=== PATIENT | male | born 1980 | race Two or more races ===

== ENCOUNTER 2024-09-08 14:00 | Emergency (ER) | payer MEDICAID, SELFPAY ==
[2024-09-08 14:01] VITALS: BMI 34.4
[2024-09-08 14:27] VITALS: BP 170/92; PULSE 91; RESP 18; TEMP 36.8; O2SAT 95
--- NOTE | 2024-09-08 14:39 | PC.NURSE ---
Call pt from lobby and outside no answer @[phone]
--- NOTE | 2024-09-08 15:28 | PD.EDSKIN ---
ED Skin Abcess FB-RME/HPI General Chief complaint: Skin/Abscess/Foreign Body Stated complaint: SHINGLES TODAY Time Seen by Provider: 09/08/24 14:36 Source: patient Arrival date/time: 09/08/24 14:00 44-year-old male presents to the emergency department with a rash to his left forearm. Patient reports history of shingle rash in the past reports symptoms today are similar to those vesicular lesions. Here requesting for treatment. Mode of arrival: ambulatory Related Data Previous Rx's ?Medication ?Instructions ?Recorded benzonatate 100 mg capsule 100 mg PO TID #14 caps 09/20/23 ibuprofen 800 mg tablet 800 mg PO TID PRN pain #30 tabs 09/20/23 acyclovir 800 mg tablet 800 mg PO QID 7 days #28 tabs 09/08/24 Allergies Allergy/AdvReac Type Severity Reaction Status Date / Time No Known Allergies Allergy Verified 09/08/24 14:02 Review of Systems Review of Systems Systems Reviewed: All systems reviewed, normal except as documented Narrative Review of Systems: Gen: No fever, no chills, no weight loss EYES: No discharge, no visual changes, no pain HEENT: No ear pain, no congestion, no sore throat PULM: No shortness of breath, no cough, no congestion CV: No chest pain, no dyspnea on exertion, no palpitations GI: No nausea, no vomiting, no diarrhea, no pain, no constipation : No frequency, no urgency,? no dysuria Musc/skel: No joint pain, no back pain Skin: +rash to forearm ED Exam Narrative Physical exam: General: Sittiing in Exam table in no acute distress, answering questions appropriately HENT: normocephalic, atraumatic, EOMI, PERRLA, moist mucous membranes Chest: chest wall is nontender Cardiac: regular rate and rhythm, normal S1 and S2, no murmurs, rubs, or gallops, capillary refill ?2 seconds Pulmonary: clear to auscultation bilaterally, no wheezing, crackles, or rhonchi Abdominal: active bowel sounds, soft, nontender, nondistended Neuro: A&OX3, CN II-XII intact, sensation grossly intact bilaterally in UE and LE. Skin: + vesicular rash noted to his left forearm. Ext: no lower extremity edema Course Quality Measures none Vital Signs Vital signs: Vital Signs Temperature 98.2 F 09/08/24 14:27 Pulse Rate 91 09/08/24 14:27 Respiratory Rate 18 09/08/24 14:27 Blood Pressure 170/92 H 09/08/24 14:27 Pulse Oximetry (%) 95 09/08/24 14:27 Oxygen Delivery Method Room Air 09/08/24 14:27 Skin / Abscess / Foreign Body Patient data External records reviewed:: [facility] previous records Clinical information provided by:: patient Social determinants that could affect healthcare access:: none Patient has the following chronic illnesses:: None How is presenting disease/condition affected by chronic disease/condition?: no chronic disease Evaluation data The following diagnostics were reviewed and interpreted by me:: other (specify) Lab and/or radiology exams considered but not ordered:: Yes it was considered Interpretation Summary: None Medications / Prescriptions Medications or Prescriptions considered but not ordered:: None Medication administrations:: None Consultations Consultation(s) initiated? (list below): No Diagnosis Skin/Abscess Differential Diagnosis: viral exanthem, urticaria, allergic reaction to drug, cellulitis, contact dermatitis and other Most likely diagnosis given after review of the tests above:: Shingles Rash Admission Indicated Admission indicated?: not indicated Explain why admission is indicated or not indicated:: None Admission Request Was there a request for admission?: No Disposition Plan Disposition Plan: Discharge Discharge Attestation Discharge Attestation: The patient and all family members were given an opportunity to ask questions and understood the discharge instructions. Discharge instructions specifically effects, indications for sooner follow up or return to the emergency department, and the expected course of current diagnosis. Patient condition: Stable Discharge Plan Plan Patient Disposition: HOME (Self Care) Patient condition on transfer: Stable Prescriptions/Referrals Prescriptions/Med Rec: New acyclovir 800 mg tablet 800 mg PO QID 7 Days Qty: 28 0RF No Action ibuprofen 800 mg tablet 800 mg PO TID PRN (Reason: pain) Qty: 30 0RF benzonatate 100 mg capsule 100 mg PO TID Qty: 14 0RF Problem List Clinical Impression: Shingles rash Patient/Caregiver Discharge Instructions Discharge Activity: activity as tolerated Education Materials: ED Shingles (Herpes Zoster) Additional Instructions: Take medication as directed. Return to the emergency department with any worsening symptoms and condition. Print Language: Vietnamese Stand Alone Forms: Jill Award Info., Patient Portal Info Letter PA/RECREATION INSTRUCTOR Supervising Physician PA/RECREATION INSTRUCTOR Supervising Physician: Dr Avina
== END 2024-09-08 15:30 | disposition home or self-care (01) ==
PROVIDERS: Emergency Provider Emergency Medicine; PCP Family Medicine
DX: B02.9 Zoster without complications (principal)
CPT/HCPCS: 99281

== ENCOUNTER 2024-09-12 17:09 | Emergency (ER) | payer MEDICAID, SELFPAY ==
[2024-09-12] VITALS (7 sets, daily range): BP systolic 155–179; BP diastolic 95–109; PULSE 95–110; RESP 16–20; TEMP 36.4–36.7; O2SAT 95–100; BMI 31.9
--- NOTE | 2024-09-12 20:19 | PD.EDANX ---
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 Patient has been complaining of panic attack, has been ongoing on and off for the last 1 week. Denies any homicidal or suicidal ideation. Severity of symptoms moderate. Denies any chest pain headache or other complaints. Patient is ambulatory. Patient not taking anything for anxiety. Related Data Previous Rx's ?Medication ?Instructions ?Recorded benzonatate 100 mg capsule 100 mg PO TID #14 caps 09/20/23 ibuprofen 800 mg tablet 800 mg PO TID PRN pain #30 tabs 09/20/23 acyclovir 800 mg tablet 800 mg PO QID 7 days #28 tabs 09/08/24 hydroxyzine pamoate 50 mg capsule 50 mg PO BID PRN anxiety #30 caps 09/12/24 Allergies Allergy/AdvReac Type Severity Reaction Status Date / Time No Known Allergies Allergy Verified 09/08/24 14:02 Review of Systems Review of Systems Narrative Review of Systems: Review of system reviewed and within normal limits except mentioned in HPI ED Exam Narrative Physical exam: VITAL SIGNS: Reviewed. GENERAL APPEARANCE: Alert and interactive, follows commands, no acute distress, anxious HEAD AND FACE: Non-traumatic. ENT: PERRL, pink conjunctivitis, eyelid no trauma, Mucous membrane moist. NECK: Supple, nontender, no nuchal rigidity. CHEST: No tenderness, no crepitus, no paradoxical movement, no retractions. LUNGS: Clear, well ventilated, symmetric, no rales, no wheezing, no ronchi, no stridor, good breath sounds bilaterally. HEART: Regular rate, regular rhythm, no murmur, no gallops. ABDOMEN: Soft, positive bowel sounds, nondistended, no guarding, nontender, no rebound, no masses, RECTAL: Deferred. GENITAL: Deferred. NEUROLOGICAL: Gross motor function intact sensory function intact, Appropriate for age. MUSCULOSKELETAL: low back nontender, full range of motion. EXTREMITIES: Nontender, full range of motion. SKIN: Color pink, dry, no rash, no lacerations, no abrasions, no contusions. LYMPHATICS: Deferred. Course Quality Measures none Orders Category Date Time Status LORazepam [Ativan] Med 09/12/24 20:15 Discontinued 1 mg PO X1 ONE Vital Signs Vital signs: Vital Signs Temperature 97.7 F 09/12/24 17:21 Pulse Rate 95 09/12/24 17:21 Respiratory Rate 16 09/12/24 17:21 Blood Pressure 155/95 H 09/12/24 17:21 Pulse Oximetry (%) 95 09/12/24 17:21 Oxygen Delivery Method Room Air 09/12/24 17:21 Anxiety MDM Narrative MDM Narrative: Patient is medically cleared for incarceration. Patient was given Ativan with significant improvement of symptoms. Workup is not needed at this time. Patient data External records reviewed:: None Clinical information provided by:: none Social determinants that could affect healthcare access:: none Patient has the following chronic illnesses:: None How is presenting disease/condition affected by chronic disease/condition?: no chronic disease Evaluation data The following diagnostics were reviewed and interpreted by me:: other (specify) (None) Lab and/or radiology exams considered but not ordered:: None Interpretation Summary: None Medications / Prescriptions Medications or Prescriptions considered but not ordered:: None Medication administrations:: Medication Administration History Discontinued Medications Lorazepam (Lorazepam 0.5 Mg Tablet) 1 mg PO X1 ONE Stop: 09/12/24 20:16 Consultations Consultation(s) initiated? (list below): No Diagnosis Differential diagnosis anxiety: hyperventilation, panic disorder and acute anxiety Most likely diagnosis given after review of the tests above:: Panic attack, medical clearance for incarceration Admission Indicated Admission indicated?: not indicated Explain why admission is indicated or not indicated:: Patient is medically cleared for incarceration Admission Request Was there a request for admission?: No Disposition Plan Disposition Plan: Discharge Discharge Attestation Discharge Attestation: Patient condition: Stable Discharge Plan Plan Patient Disposition: HOME (Self Care) Disposition Comment: stable Prescriptions/Referrals Prescriptions/Med Rec: New hydroxyzine pamoate 50 mg capsule 50 mg PO BID PRN (Reason: anxiety) Qty: 30 0RF No Action ibuprofen 800 mg tablet 800 mg PO TID PRN (Reason: pain) Qty: 30 0RF benzonatate 100 mg capsule 100 mg PO TID Qty: 14 0RF acyclovir 800 mg tablet 800 mg PO QID 7 Days Qty: 28 0RF Referrals: Alejandro Villalba MD [Primary Care Provider] - In 1 week Problem List Clinical Impression: Acute anxiety, Medical clearance for incarceration Patient/Caregiver Discharge Instructions Discharge Activity: activity as tolerated Education Materials: ED Anxiety Reaction Additional Instructions: Thank you for the opportunity for serving you today. You are stable for discharged . You are advised to: Follow-up with your PCP in 1 to 2 days once you get out of retirement Return to ED for worsening of symptoms Increase oral fluids Take medication as prescribed Print Language: Turkish Stand Alone Forms: Jill Award Info., Patient Portal Info Letter PA/POSTAGE MACHINE OPERATOR Supervising Physician PA/POSTAGE MACHINE OPERATOR Supervising Physician: MD Darby
[2024-09-12] MEDS: LORazepam 0.5 MG TABLET 1 MG PO (20:23)
== END 2024-09-12 20:32 ==
PROVIDERS: Emergency Provider Emergency Medicine; PCP Family Medicine
DX: Z02.89 Encounter for other administrative examinations (principal); F41.9 Anxiety disorder, unspecified; Z65.3 Problems related to other legal circumstances
CPT/HCPCS: 99282; A9270

== ENCOUNTER 2025-02-16 22:43 | Emergency (ER) | payer MEDICAID, SELFPAY ==
[2025-02-16 22:44] VITALS: BMI 39.1
[2025-02-16 23:08] VITALS: BP 168/94; PULSE 103; RESP 18; TEMP 36.8; O2SAT 96
--- NOTE | 2025-02-16 23:39 | EDNOTE_ITS ---
ED General RME/HPI General Chief complaint: General Adult/Misc Complain Stated complaint: WANTS HIV/AIDS TESTING/MEDICATION Time Seen by Provider: 02/16/25 23:08 Source: patient Arrival date/time: 02/16/25 22:43 Mode of arrival: ambulatory Limitations: no limitations RME / HPI RME / HPI narrative: 44-year-old male presents to ED with complaint of possibly being exposed to the HIV virus. Patient is tells me that he does not know when he was possibly exposed. Onset (ago): unknown Severity: mild Severity scale (1-10): 1 Quality: other (THERE ARE NO SYMPTOMS YET.) Consistency: other (There are no symptoms) Relieving factors: none Exacerbating factors: none Associated symptoms: denies other symptoms Related Data Previous Rx's ?Medication ?Instructions ?Recorded benzonatate 100 mg capsule 100 mg PO TID #14 caps 08/24 07/15 ibuprofen 800 mg tablet 800 mg PO TID PRN pain #30 t abs 09/20/23 hydroxyzine pamoate 50 mg capsule 50 mg PO BID PRN anx iety #30 caps 09/12/24 emtricitabine 200 mg-tenofovir 1 tab PO Q24H #28 tabs 02/16/25 disoproxil fumarate 300 mg tablet (Truvada) Allergies Allergy/AdvReac Type Severity Reaction Status Date / Time No Known Allergies Allergy Verified 02/16/25 22:46 Review of Systems Review of Systems Systems Reviewed: All systems reviewed, normal except as documented ED Exam General Limitations: Present no limitations General appearance: Present alert and in no apparent distress Head Head exam: Present atraumatic, normocephalic and normal inspection Eye Eye exam: Present normal appearance and EOMI ENT ENT exam: Present normal exam and normal oropharynx Neck Neck exam: Present normal inspection and full ROM Chest Chest inspection: Present normal inspection Extremities Exam Extremities exam: Present normal inspection Back Exam Back exam: Present normal inspection and full ROM Neurological Exam Neurological exam: Present alert and oriented X3 Psychiatric Psychiatric exam: Present normal affect and normal mood Skin Skin exam: Present warm, dry, intact and normal color Course Quality Measures none Orders Category Date Time Status CBC Stat Lab 02/16/25 23:26 Ordered CMP [Comprehensive Metabolic Panel] Stat Lab 02/16/25 23:26 Ordered HIV Rapid (Source Pt) Stat Lab 02/16/25 23:23 Ordered Vital Signs Vital signs: Vital Signs Temperature 98.2 F 02/16/25 23:08 Pulse Rate 103 H 02/16/25 23:08 Respiratory Rate 18 02/16/25 23:08 Blood Pressure 168/94 H 02/16/25 23:08 Pulse Oximetry (%) 96 02/16/25 23:08 Oxygen Delivery Method Room Air 02/16/25 23:08 Pulse ox 96% room air Discharge Plan Plan Patient Disposition: HOME (Self Care) Patient condition on transfer: Stable Prescriptions/Referrals Prescriptions/Med Rec: New emtricitabine-tenofovir (TDF) [Truvada] 200-300 mg tablet 1 tab PO Q24H Qty: 28 0RF No Action ibuprofen 800 mg tablet 800 mg PO TID PRN (Reason: pain) Qty: 30 0RF benzonatate 100 mg capsule 100 mg PO TID Qty: 14 0RF hydroxyzine pamoate 50 mg capsule 50 mg PO BID PRN (Reason: anxiety) Qty: 30 0RF Problem List Clinical Impression: HIV (human immunodeficiency virus infection) Patient/Caregiver Discharge Instructions Education Materials: Discharge Instructions for HIV ... Additional Instructions: Patient is to abstain from sexual activity accidentally 6 weeks to 6 months until he is tested for HIV virus rule out Print Language: Tristanian PA/RECONCILIATION CLERK Supervising Physician PA/RECONCILIATION CLERK Supervising Physician: JAYLEN MDM Patient Acuity Low Acuity (complete MDM as needed) Clinical Information Provided by: none and patient Medical Records reviewed None Meds/Rx considered, not ordered None Labs/Rad/Tests considered, not ordered None Chronic Illness/Social Conditions which may negatively complicate care or outcome(s)-explain: None or not applicable Medication Administration(s) none Diagnosis Differential Diagnosis ED Complaint MDM: EXPOSURE HIV
[2025-02-16 23:50] LABS: Basophils % (Auto) 1 % (0-2.5); Eosinophils # (Auto) 0.3 Thou/mm3 (0.0-0.5); Eosinophils % (Auto) 6 % (0-10); Hematocrit 43.4 % (41.0-53.0); Immature Granulocytes % (Auto) 0 % (0-0); Immature Granulocytes Auto 0.01 Thou/mm3 (0.00-0.00); Lymphocytes # (Auto) 2.2 Thou/mm3 (1.0-4.8); Lymphocytes % (Auto) 38 % (10-50); Mean Corpuscular HGB Conc 34.6 g/dl (31.0-37.0); Mean Corpuscular Hemoglobin 28.6 pg (25.0-35.0); Mean Corpuscular Volume 83 fL (80-100); Monocytes # (Auto) 0.6 Thou/mm3 (0.0-0.8); Monocytes % (Auto) 9 % (0-12); Neutrophils # (Auto) 2.8 Thou/mm3 (1.8-7.7); Neutrophils % (Auto) 47 % (37-80); Nucleated Red Blood Cell % 0 /100 WBC (0); Platelet Count 271 Thou/mm3 (140-440); RDW Standard Deviation 37.8 fL (35.1-43.9); Red Blood Count 5.25 Miln/mm3 (4.50-5.90); White Blood Count 5.9 Thou/mm3 (3.8-10.6)
[2025-02-17 00:18] LABS: Alanine Aminotransferase 75 U/L (10-49); Albumin, Serum 4.9 gm/dL (3.5-5.0); Albumin/Globulin Ratio 1.4 (1.2-2.2); Alkaline Phosphatase 66 U/L (46-116); Anion Gap 9 (7-16); Aspartate Amino Transferase 75 U/L (0-34); BUN/Creatinine Ratio 8 Ratio (12-20); Bilirubin,Total 0.8 mg/dL (0.3-1.2); Blood Urea Nitrogen 7 mg/dL (9-23); Calcium 9.7 mg/dL (8.3-10.6); Calcium (Corrected) 9.7 mg/dL (8.5-10.1); Chloride 101 mMol/L (98-107); Creatinine (Component) 0.9 mg/dL (0.6-1.3); Estimated Creatinine Clearance 127.3 mL/min (>60); Globulin 3.5 gm/dL (2.3-3.5); Glucose 92 mg/dL (74-106); Osmolality,Calculated 268 (275-295); Potassium 3.6 mMol/L (3.4-5.1); Sodium 135 mMol/L (136-145); Total Protein 8.4 gm/dL (5.7-8.2); eGFR > 60 See Note
[2025-02-17 08:26] LABS: HIV Rapid (Source Pt) Non-Reactive
== END 2025-02-17 00:14 | disposition home or self-care (01) ==
LOC: SERX 23:45
PROVIDERS: Physician Assistant; Emergency Provider Emergency Medicine; PCP Physician Assistant
DX: Z21 Asymptomatic human immunodeficiency virus [HIV] infection status (principal)
CPT/HCPCS: 36415; 80053; 85025; 99283

== ENCOUNTER 2025-03-31 02:11 | Emergency (ER) | payer MEDICAID, SELFPAY ==
[2025-03-31] VITALS (17 sets, daily range): BP systolic 102–155; BP diastolic 66–100; PULSE 89–113; RESP 16–20; TEMP 36.2–37; O2SAT 87–97; BMI 39.1
--- NOTE | 2025-03-31 02:28 | EDNOTE_ITS ---
ED Alcohol RME/HPI General Chief Complaint: Alcohol Stated Complaint: ETOH HEAD ACHE Arrival date/time: 03/31/25 02:11 RME / HPI RME / HPI narrative: This section includes all my notes and documentations, including HPI, PE, and ED course. Josue Pulido MD HPI: 44 y/o male with Hx of Anxiety and HTN BIBA after being deemed too intoxicated to be incarcerated by law enforcement after being found on the streets with public intoxication. No other complaints. ROS: All negative except as documented in HPI. Physical Exam: General:? Alert and oriented.? Obviously intoxicated. Eyes:? Conjunctivae and lids clear.? EOMI.? PERRL. ENT:? No nasal congestion.? Neck:? Supple.? Heart:? RRR.? Lungs:? No respiratory distress.? Good air movement.? No rhonchi, wheezing, rales.?? Abdomen:? Soft and nontender.? Normal bowel sounds.? No distension.? No rebound or guarding.?? Skin:? Warm and dry.?? Neuro:? Alert and oriented X 3.? Cranial Nerves II-XII grossly intact.? No peripheral motor deficits. Musculoskeletal:? All major joints and bones are not tender with no limited ROM. I reviewed EMS notes. I reviewed all diagnostic test results: Blood tests remarkable for ethyl Alcohol 315.7. Urine specimen pending. No urine in the bladder with straight catheterization. At this point, diagnoses include: Alcohol intoxication. Treatment here included: Zofran, IV fluid. Signed-out to Dr. Richard at 6 AM. Josue Pulido MD Related Data Previous Rx's ?Medication ?Instructions ?Recorded benzonatate 100 mg capsule 100 mg PO TID #14 caps 08/24 07/15 ibuprofen 800 mg tablet 800 mg PO TID PRN pain #30 t abs 09/20/23 hydroxyzine pamoate 50 mg capsule 50 mg PO BID PRN anx iety #30 caps 09/12/24 emtricitabine 200 mg-tenofovir 1 tab PO Q24H #28 tabs 02/16/25 disoproxil fumarate 300 mg tablet (Truvada) Allergies Allergy/AdvReac Type Severity Reaction Status Date / Time No Known Allergies Allergy Verified 03/31/25 02:29 Review of Systems Review of Systems Systems Reviewed: All systems reviewed, normal except as documented Past Medical History Past Medical History CARDIAC: Positive Cardiac Disorders and Hypertension PSYCHO/SOCIAL: Positive Anxiety Family History FAMILY HISTORY: Positive Family Cardiac Disorders ED Exam Narrative Physical exam: Refer to HPI Course Quality Measures none Orders Category Date Time Status Saline [Insert IV] NOW Care 03/31/25 02:36 Active Straight [In and Out Catheter] X1 Care 03/31/25 02:36 Active Acetaminophen Stat Lab 03/31/25 02:43 Completed Alcohol, Blood Medical Stat Lab 03/31/25 02:43 Completed Bilirubin,Direct Stat Lab 03/31/25 02:43 Completed CBC Stat Lab 03/31/25 02:43 Completed CMP [Comprehensive Metabolic Panel] Stat Lab 03/31/25 02:43 Completed Drug Screen,Urine Stat Lab 03/31/25 02:37 Ordered Magnesium Stat Lab 03/31/25 02:43 Completed Salicylate Stat Lab 03/31/25 02:43 Completed *1000mL Wide Open x1 Med 03/31/25 04:48 Ordered Sodium Chloride 0.9% 1000 ml [Ns] 1,000 ml IV 999 mls/hr Ondansetron Inj [Zofran Inj] Med 03/31/25 02:36 Discontinued 4 mg IVP X1 ONE Sodium Chloride 0.9% 1000 ml [Ns] 1,000 ml Med 03/31/25 02:36 Discontinued IV 999 mls/hr Sodium Chloride 0.9% 1000 ml [Ns] 1,000 ml Med 03/31/25 03:41 Discontinued IV 999 mls/hr Vital Signs Vital signs: Vital Signs Temperature 98.6 F 03/31/25 02:35 Pulse Rate 111 H 03/31/25 02:35 Respiratory Rate 18 03/31/25 02:35 Blood Pressure 155/76 H 03/31/25 02:35 Pulse Oximetry (%) 95 03/31/25 02:35 Oxygen Delivery Method Room Air 03/31/25 02:35 Discharge Plan Prescriptions/Referrals Prescriptions/Med Rec: No Action ibuprofen 800 mg tablet 800 mg PO TID PRN (Reason: pain) Qty: 30 0RF benzonatate 100 mg capsule 100 mg PO TID Qty: 14 0RF hydroxyzine pamoate 50 mg capsule 50 mg PO BID PRN (Reason: anxiety) Qty: 30 0RF emtricitabine-tenofovir (TDF) [Truvada] 200-300 mg tablet 1 tab PO Q24H Qty: 28 0RF Referrals: No Primary/Family,Physician [Primary Care Provider] - In 1 week Problem List Clinical Impression: Alcohol intoxication Patient/Caregiver Discharge Instructions Print Language: German Alcohol MDM Narrative MDM Narrative: Scribe Attestation: Judith Caballero am scribing for and in the presence of Dr. Pulido. Provider Notation: Although this document has been carefully reviewed, there may still be some phonetic and other typographical errors.? These errors are purely grammatical due to imperfections in the software program and should not be construed in any way to? compromise the substance of the patient's medical care during this visit. 44 y/o male with Hx of Anxiety and HTN BIBA after being deemed to intoxicated to be incarcerated by law enforcement. No other complaints. Patient data External records reviewed:: [facility] previous records (Reviewed prior ED records from 02/16/25. Patient was seen for HIV (human immunodeficiency virus infection).) and EMS form Clinical information provided by:: patient and EMS Social determinants that could affect healthcare access:: alcohol use Patient has the following chronic illnesses:: Anxiety, HTN How is presenting disease/condition affected by chronic disease/condition?: uneffected by Evaluation data The following diagnostics were reviewed and interpreted by me:: lab results Lab and/or radiology exams considered but not ordered:: None Interpretation Summary: I reviewed all diagnostic test results: Blood tests remarkable for ethyl Alcohol 315.7. Medications / Prescriptions Medications or Prescriptions considered but not ordered:: None Medication administrations:: Medication Administration History Discontinued Medications Sodium Chloride (Ns) 1,000 mls @ 999 mls/hr IV .Q1H1M ONE Stop: 03/31/25 03:36 Last Infusion: 03/31/25 04:26 Dose: Infused Documented By: Admin: 03/31/25 03:07 Dose: 999 mls/hr Documented By: BD Sodium Chloride (Ns) 1,000 mls @ 999 mls/hr IV .Q1H1M ONE Stop: 03/31/25 04:41 Last Admin: 03/31/25 04:24 Dose: 999 mls/hr Documented By: BD Ondansetron HCl (Ondansetron Inj 2 Mg/Ml Inj 2 Ml) 4 mg IVP X1 ONE; Protocol Stop: 03/31/25 02:37 Last Admin: 03/31/25 03:07 Dose: 4 mg Documented By: BD Zofran, IV fluid Consultations Consultation(s) initiated? (list below): No Diagnosis Differential diagnosis alcohol: alcohol withdrawal delirium, hypomagnesemia, alcohol intoxication, alcohol ketoacidosis, alcohol withdrawal syndrome and alcohol withdrawal seizure Most likely diagnosis given after review of the tests above:: Alcohol intoxication. Admission Indicated Admission indicated?: not indicated Explain why admission is indicated or not indicated:: Signed out to Dr. Richard. Admission Request Was there a request for admission?: No Disposition Plan Disposition Plan: other (specify) (Sign-out to Dr. Richard at 6 AM.)
[2025-03-31 03:06] LABS: Basophils % (Auto) 1 % (0-2.5); Eosinophils # (Auto) 0.4 Thou/mm3 (0.0-0.5); Eosinophils % (Auto) 8 % (0-10); Hematocrit 34.2 % (41.0-53.0); Immature Granulocytes % (Auto) 0 % (0-0); Immature Granulocytes Auto 0.01 Thou/mm3 (0.00-0.00); Lymphocytes # (Auto) 2.1 Thou/mm3 (1.0-4.8); Lymphocytes % (Auto) 44 % (10-50); Mean Corpuscular HGB Conc 35.1 g/dl (31.0-37.0); Mean Corpuscular Hemoglobin 30.2 pg (25.0-35.0); Mean Corpuscular Volume 86 fL (80-100); Monocytes # (Auto) 0.5 Thou/mm3 (0.0-0.8); Monocytes % (Auto) 10 % (0-12); Neutrophils # (Auto) 1.8 Thou/mm3 (1.8-7.7); Neutrophils % (Auto) 37 % (37-80); Nucleated Red Blood Cell % 0 /100 WBC (0); Platelet Count 269 Thou/mm3 (140-440); RDW Standard Deviation 44.3 fL (35.1-43.9); Red Blood Count 3.97 Miln/mm3 (4.50-5.90); White Blood Count 4.8 Thou/mm3 (3.8-10.6)
[2025-03-31] MEDS: ONDANSETRON INJ 2 MG/ML INJ 2 ML 4 MG IVP (03:07)
[2025-03-31] MEDS: SODIUM CHLORIDE 0.9% 1000 ML 1,000 ML 999 ML IV ×3 (03:07→04:54)
--- NOTE | 2025-03-31 03:29 | PC.NURSE ---
ATTEMPTED IN AND OUT CATH NO URINE OUTPUT
[2025-03-31 03:33] LABS: Acetaminophen < 2.0 mcg/mL (10.0-20.0); Alanine Aminotransferase 132 U/L (10-49); Albumin, Serum 4.4 gm/dL (3.5-5.0); Albumin/Globulin Ratio 1.6 (1.2-2.2); Alcohol, Blood Medical 315.7 mg/dL (0-10.0); Alkaline Phosphatase 95 U/L (46-116); Anion Gap 13 (7-16); BUN/Creatinine Ratio 9 Ratio (12-20); Bilirubin,Direct 0.1 mg/dL (0.0-0.3); Bilirubin,Total 0.3 mg/dL (0.3-1.2); Blood Urea Nitrogen 9 mg/dL (9-23); Carbon Dioxide 23.7 mMol/L (20.0-31.0); Chloride 110 mMol/L (98-107); Estimated Creatinine Clearance 114.5 mL/min (>60); Globulin 2.7 gm/dL (2.3-3.5); Glucose 113 mg/dL (74-106); Magnesium 2.1 mg/dL (1.6-2.6); Osmolality,Calculated 292 (275-295); Potassium 3.8 mMol/L (3.4-5.1); Salicylate < 3.0 mg/dL; Sodium 147 mMol/L (136-145); Total Protein 7.1 gm/dL (5.7-8.2); eGFR > 60 See Note
--- NOTE | 2025-03-31 05:31 | PC.NURSE ---
PT WAS ABLE TO URINATE ON OWN DID NOT ATTEMPT ANOTHER IN AND OUT
[2025-03-31 05:46] LABS: Amphetamine/Methamp Scrn,U Positive (Negative); Barbiturate Screen,Urine Negative (Negative); Benzodiazepines Screen,Urine Negative (Negative); Benzoylecgonine Screen, Ur Negative (Negative); Fentanyl Screen,Urine Negative (Negative); Opiate Screen,Urine Negative (Negative); THC Screen,Urine Negative (Negative)
--- NOTE | 2025-03-31 07:40 | PD.EDADDENDU ---
Emergency Room Addendum Addendum Narrative: 0600: Care assumed from Dr. Pulido, the previous shift emergency physician. Past medical, surgical, social and family history reviewed. Vitals and home medications reviewed. I will assume the care of the patient at this time, pending repeat alcohol level and reassessment. Please refer to the emergency department record for history and examination from initial visit.?The following addendum documentation note is intended to reflect any pending information, findings, or radiology results not included in the patient?s initial chart. 1030: The patient is awake, alert, and can ambulate without difficulty. Patient remains clinically stable throughout the emergency department visit. We reviewed all the results, analysis, and treatment plans. Patient is amenable to discharge. Strict return precautions were outlined. Patient was discharged in stable condition.
[2025-03-31 08:23] LABS: Alcohol, Blood Medical 204.5 mg/dL (0-10.0)
== END 2025-03-31 11:28 | disposition home or self-care (01) ==
PROVIDERS: Family Medicine; Emergency Provider Emergency Medicine
DX: F10.929 Alcohol use, unspecified with intoxication, unspecified (principal); Y90.8 Blood alcohol level of 240 mg/100 ml or more
CPT/HCPCS: 36415; 80053; 80307; 80320; 80329; 82248; 83735; 85025; 96361; 96374; 99284; J2405; J7030; G0480

== ENCOUNTER 2025-05-27 08:55 | Emergency (ER) | payer MEDICAID, SELFPAY ==
[2025-05-27 08:56] VITALS: BMI 32.8
[2025-05-27 09:07] VITALS: BP 162/84; PULSE 114; RESP 24; TEMP 36.9; O2SAT 96
--- NOTE | 2025-05-27 09:34 | EDNOTE_ITS ---
<Statement entered by Lynda Victoria MD - 05/28/25 16:19> As co-signing physician, I was present and available for consult prn. I concur with the plan and care as documented by the midlevel provider. ED Alcohol RME/HPI General Chief Complaint: Alcohol Stated Complaint: ETOH WITHDRAWL Time Seen by Provider: 05/27/25 09:33 Source: patient and family Arrival date/time: 05/27/25 08:55 Mode of arrival: ambulatory Limitations: no limitations RME / HPI RME / HPI narrative: 45-year-old male presents to the ED with complaint of vomiting to numerous to count the last couple of days. Parent shows concern for patient who hit his head approximately 3 months ago falling off a skateboard onto a curb. Note that the patient did not mention anything to me about alcohol issues until I read it in a triage note. Related Data Previous Rx's ?Medication ?Instructions ?Recorded benzonatate 100 mg capsule 100 mg PO TID #14 caps 08/24 07/15 ibuprofen 800 mg tablet 800 mg PO TID PRN pain #30 t abs 09/20/23 hydroxyzine pamoate 50 mg capsule 50 mg PO BID PRN anx iety #30 caps 09/12/24 emtricitabine 200 mg-tenofovir 1 tab PO Q24H #28 tabs 02/16/25 disoproxil fumarate 300 mg tablet (Truvada) Allergies Allergy/AdvReac Type Severity Reaction Status Date / Time No Known Allergies Allergy Verified 05/27/25 08:59 Review of Systems Constitutional Constitutional: Reports system reviewed and no additional complaints, except as documented Eyes Eyes: Reports system reviewed and no additional complaints, except as documented, Denies dry eyes, Denies exophthalmos and Reports floaters Cardiovascular Cardiovascular: Denies chest pain with activity and Denies claudication ED Exam General Limitations: Present no limitations General appearance: Present alert and in no apparent distress Head Head exam: Present other (There is a mild mass at the left forehead.) Eye Eye exam: Present normal appearance, PERRL and EOMI ENT ENT exam: Present normal exam, normal oropharynx and mucous membranes moist Neck Neck exam: Present normal inspection, full ROM and trachea midline Chest Chest inspection: Present normal inspection and symmetric chest wall rise Abdominal Exam Abdominal exam: Present tenderness (Tenderness to palpation throughout) Extremities Exam Extremities exam: Present normal inspection and full ROM Back Exam Back exam: Present normal inspection and full ROM Neurological Exam Neurological exam: Present alert and oriented X3 Psychiatric Psychiatric exam: Present normal affect and normal mood Skin Skin exam: Present warm, dry, intact and normal color Course Course Course Narrative: Patient will have a CT of the head, CMP, CBC, UA, and an EtOH level. Quality Measures none Orders Category Date Time Status CT head/brain wo con Stat Exams 05/27/25 09:59 Completed Alcohol, Blood Medical Stat Lab 05/27/25 10:17 Completed CBC Stat Lab 05/27/25 10:17 Completed CMP [Comprehensive Metabolic Panel] Stat Lab 05/27/25 10:17 Completed UA [Urinalysis] Stat Lab 05/27/25 10:37 Completed Metoclopramide Inj [Reglan Inj] Med 05/27/25 09:56 Discontinued 10 mg IM X1 ONE As above Vital Signs Vital signs: Vital Signs Temperature 98.4 F 05/27/25 09:07 Pulse Rate 114 H 05/27/25 09:07 Respiratory Rate 24 H 05/27/25 09:07 Blood Pressure 162/84 H 05/27/25 09:07 Pulse Oximetry (%) 96 05/27/25 09:07 Oxygen Delivery Method Room Air 05/27/25 09:07 Pulse ox room air is 96% Discharge Plan Plan Patient Disposition: Elopement Prescriptions/Referrals Prescriptions/Med Rec: No Action ibuprofen 800 mg tablet 800 mg PO TID PRN (Reason: pain) Qty: 30 0RF benzonatate 100 mg capsule 100 mg PO TID Qty: 14 0RF hydroxyzine pamoate 50 mg capsule 50 mg PO BID PRN (Reason: anxiety) Qty: 30 0RF emtricitabine-tenofovir (TDF) [Truvada] 200-300 mg tablet 1 tab PO Q24H Qty: 28 0RF Referrals: Alejandro Villalba MD [Primary Care Provider] - In 1 week Problem List Clinical Impression: Alcoholic intoxication Impression comment: Alcohol intoxication Patient/Caregiver Discharge Instructions Print Language: Omani ADAM/DIRECTOR ERP Supervising Physician PA/DIRECTOR ERP Supervising Physician: DAISHA Chase Patient data External records reviewed:: Other (specify) (NA) Clinical information provided by:: patient Social determinants that could affect healthcare access:: none (NA) Patient has the following chronic illnesses:: NA How is presenting disease/condition affected by chronic disease/condition?: caused by (Contusion to head versus alcohol dependence) Evaluation data The following diagnostics were reviewed and interpreted by me:: lab results Lab and/or radiology exams considered but not ordered:: ETOH ABUSE Interpretation Summary: NA Medications / Prescriptions Medications or Prescriptions considered but not ordered:: NA Medication administrations:: Medication Administration History Discontinued Medications Metoclopramide HCl (Metoclopramide Inj 5 Mg/Ml Vial 2 Ml) 10 mg IM X1 ONE; Protocol Stop: 05/27/25 09:57 Last Admin: 05/27/25 10:01 Dose: 10 mg Documented By: AA ORDERED Consultations Consultation(s) initiated? (list below): No Diagnosis Differential diagnosis alcohol: alcohol intoxication, alcohol ketoacidosis and alcohol withdrawal syndrome Most likely diagnosis given after review of the tests above:: NA Admission Indicated Admission indicated?: not indicated Admission Request Was there a request for admission?: No Disposition Plan Disposition Plan: Discharge Discharge Attestation Discharge Attestation: The patient and all family members were given an opportunity to ask questions and understood the discharge instructions. Discharge instructions specifically effects, indications for sooner follow up or return to the emergency department, and the expected course of current diagnosis. Patient condition: Stable
--- NOTE | 2025-05-27 09:59 | XR_ITS ---
Examination: CT brain head without contrast. 2-D sagittal coronal reconstructions Date and time of exam:May 27, 2025 1009 hours Comparison December 27, 2021 INDICATIONS: Headaches dizziness beginning 3 months ago CTDI: vol (mGy):54.2 DLP: (mGycm):1171 Technique: Multiple CT axial sections of the brain have been obtained, 5 mm slice thickness. Contrast has not been administered. 2-D sagittal, coronal reconstructions have been obtained Low dose protocols were performed. One or more of the following dose reduction techniques were used; automated exposure control, adjustment of the mA and/or KV according to patient size, use of iterative reconstruction technique. Findings: No significant ventricular enlargement. Intra-axial or extra-axial hemorrhage density is not seen. No mass effect or midline shift Basal cisterns are not remarkable. Fourth ventricle is midline. Cranial vault intact. Impression: Negative for acute hemorrhage, mass effect or midline shift If symptoms persist, consider brain MRI follow-up
[2025-05-27] MEDS: METOCLOPRAMIDE INJ 5 MG/ML VIAL 2 ML 10 MG IM (10:01)
[2025-05-27 10:25] LABS: Basophils # (Auto) 0.1 Thou/mm3 (0.0-0.2); Basophils % (Auto) 1 % (0-2.5); Eosinophils # (Auto) 0.4 Thou/mm3 (0.0-0.5); Eosinophils % (Auto) 8 % (0-10); Hematocrit 43.3 % (41.0-53.0); Hemoglobin 15.0 g/dL (13.5-16.0); Immature Granulocytes Auto 0.02 Thou/mm3 (0.00-0.00); Lymphocytes # (Auto) 2.6 Thou/mm3 (1.0-4.8); Lymphocytes % (Auto) 46 % (10-50); Mean Corpuscular HGB Conc 34.6 g/dl (31.0-37.0); Mean Corpuscular Hemoglobin 27.8 pg (25.0-35.0); Mean Corpuscular Volume 80 fL (80-100); Monocytes # (Auto) 0.4 Thou/mm3 (0.0-0.8); Monocytes % (Auto) 8 % (0-12); Neutrophils # (Auto) 2.1 Thou/mm3 (1.8-7.7); Neutrophils % (Auto) 37 % (37-80); Nucleated Red Blood Cell # 0.00 Thou/mm3 (0.00-0.00); Nucleated Red Blood Cell % 0 /100 WBC (0); Platelet Count 324 Thou/mm3 (140-440); RDW Standard Deviation 39.1 fL (35.1-43.9); Red Blood Count 5.40 Miln/mm3 (4.50-5.90); White Blood Count 5.7 Thou/mm3 (3.8-10.6)
[2025-05-27 10:43] LABS: Alanine Aminotransferase 90 U/L (10-49); Albumin, Serum 4.7 gm/dL (3.5-5.0); Albumin/Globulin Ratio 1.4 (1.2-2.2); Alcohol, Blood Medical 66.3 mg/dL (0-10.0); Alkaline Phosphatase 92 U/L (46-116); Anion Gap 13 (7-16); Aspartate Amino Transferase 88 U/L (0-34); BUN/Creatinine Ratio 8 Ratio (12-20); Bilirubin,Total 0.3 mg/dL (0.3-1.2); Blood Urea Nitrogen 7 mg/dL (9-23); Calcium 10.1 mg/dL (8.3-10.6); Calcium (Corrected) 10.1 mg/dL (8.5-10.1); Carbon Dioxide 21.7 mMol/L (20.0-31.0); Chloride 103 mMol/L (98-107); Creatinine (Component) 0.9 mg/dL (0.6-1.3); Estimated Creatinine Clearance 115.2 mL/min (>60); Globulin 3.3 gm/dL (2.3-3.5); Glucose 127 mg/dL (74-106); Osmolality,Calculated 275 (275-295); Potassium 4.0 mMol/L (3.4-5.1); Sodium 138 mMol/L (136-145); Total Protein 8.0 gm/dL (5.7-8.2); eGFR > 60 See Note
[2025-05-27 11:03] LABS: Collection Type, Urine Clean Catch; Squamous Epithelial Cell,Urine 0 /hpf (0-5)
[2025-05-27 11:17] LABS: Bilirubin,Urine Negative (Negative); Blood,Urine Negative (Negative); Clarity,Urine Clear (Clear/Hazy); Color,Urine Yellow (Lt Yel-Yel); Glucose, Urine Negative (Negative); Ketones,Urine Negative (Negative); Leukocyte Esterase,Urine Positive (Negative); Nitrite,Urine Negative (Negative); PH,Urine 7.0 (5.0-7.0); Protein,Urine Trace (Neg - Trace); RBC,Urine 1 /hpf (0-3); Specific Gravity,Urine 1.020 (1.001-1.035); Urobilinogen,Urine Negative mg/dL (0.0-1.0); WBC,Urine 10 /hpf (0-5)
--- NOTE | 2025-05-27 14:24 | PC.NURSE ---
pt did not answer when name was called and was not found outside.
--- NOTE | 2025-05-27 14:43 | PC.NURSE ---
Pt did not answer when name was called in the and was not found outside for the second time
--- NOTE | 2025-05-27 15:28 | PC.NURSE ---
nax3 [phone] for discharge. Patient eloped ED.
== END 2025-05-27 15:29 | disposition left against medical advice (07) ==
LOC: SERX 10:27
PROVIDERS: Physician Assistant; Emergency Provider Emergency Medicine; PCP Family Medicine
DX: F10.129 Alcohol abuse with intoxication, unspecified (principal); R51.9 Headache, unspecified; R42 Dizziness and giddiness; Y90.3 Blood alcohol level of 60-79 mg/100 ml
CPT/HCPCS: 36415; 70450; 80053; 80320; 81001; 85025; 96372; J2765; G0480

== ENCOUNTER 2025-05-28 11:15 | Emergency (ER) | payer OTHER, SELFPAY ==
[2025-05-28 11:16] VITALS: BP 156/103; PULSE 104; RESP 18; TEMP 36.5; O2SAT 97; BMI 32.8
--- NOTE | 2025-05-28 11:19 | EKG_ITS ---
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
[2025-05-28 11:25] VITALS: PULSE 102
--- NOTE | 2025-05-28 11:27 | EDNOTE_ITS ---
<Statement entered by Lynda Victoria MD - 05/28/25 15:09> As co-signing physician, I was present and available for consult prn. I concur with the plan and care as documented by the midlevel provider. ED Medical Clearance RME/HPI General Chief complaint: Medical Clearance Stated complaint: MEDICAL CLEARANCE Time Seen by Provider: 05/28/25 11:19 Arrival date/time: 05/28/25 11:15 RME / HPI RME / HPI Narrative: 45-year-old male patient with significant history of HIV, anxiety, was brought in by law enforcement for evaluation regarding medical clearance. Apparently patient was brought in due to possible anxiety-like symptoms. Patient was noted to be having hyperventilation and shortness of breath and chest pain has been ongoing for the last few days. Patient told me that he probably having alcohol withdrawal however patient drink alcohol yesterday. Patient's not showing any tremors or anxiety like symptoms on my evaluation. His only complaint is chest discomfort for several days. Patient denies any other complaints no medications taken prior to arrival. Related Information Previous Rx's ?Medication ?Instructions ?Recorded benzonatate 100 mg capsule 100 mg PO TID #14 caps 08/24 07/15 ibuprofen 800 mg tablet 800 mg PO TID PRN pain #30 t abs 09/20/23 hydroxyzine pamoate 50 mg capsule 50 mg PO BID PRN anx iety #30 caps 09/12/24 emtricitabine 200 mg-tenofovir 1 tab PO Q24H #28 tabs 02/16/25 disoproxil fumarate 300 mg tablet (Truvada) Allergies Allergy/AdvReac Type Severity Reaction Status Date / Time No Known Allergies Allergy Verified 05/27/25 08:59 Review of Systems Review of Systems Narrative Review of Systems: Review of system reviewed and within normal limits except mentioned in HPI ED Exam Narrative Physical exam: VITAL SIGNS: Reviewed. GENERAL APPEARANCE: Alert and interactive, follows commands, no acute distress, HEAD AND FACE: Non-traumatic. ENT: PERRL, pink conjunctivitis, eyelid no trauma, Mucous membrane moist. NECK: Supple, nontender, no nuchal rigidity. CHEST: No tenderness, no crepitus, no paradoxical movement, no retractions. LUNGS: Clear, well ventilated, symmetric, no rales, no wheezing, no ronchi, no stridor, good breath sounds bilaterally. HEART: Regular rate, regular rhythm, no murmur, no gallops. ABDOMEN: Soft, positive bowel sounds, nondistended, no guarding, nontender, no rebound, no masses, RECTAL: Deferred. GENITAL: Deferred. NEUROLOGICAL: Gross motor function intact sensory function intact, Appropriate for age. MUSCULOSKELETAL: low back nontender, full range of motion. EXTREMITIES: Nontender, full range of motion. SKIN: Color pink, dry, no rash, no lacerations, no abrasions, no contusions. LYMPHATICS: Deferred. Course Quality Measures none Orders Category Date Time Status EKG (ED ONLY) *Do not use* NOW Care 05/28/25 11:19 Completed EKG (ED Only) Stat Exams 05/28/25 11:19 Draft Vital Signs Vital signs: Vital Signs Temperature 97.7 F 05/28/25 11:16 Pulse Rate 104 H 05/28/25 11:16 Respiratory Rate 18 05/28/25 11:16 Blood Pressure 156/103 H 05/28/25 11:16 Pulse Oximetry (%) 97 05/28/25 11:16 Oxygen Delivery Method Room Air 05/28/25 11:16 Medical Clearance MDM Narrative MDM Narrative:: 45-year-old male patient with significant history of HIV, anxiety, was brought in by law enforcement for evaluation regarding medical clearance. Apparently patient was brought in due to possible anxiety-like symptoms. Patient was noted to be having hyperventilation and shortness of breath and chest pain has been ongoing for the last few days. Patient told me that he probably having alcohol withdrawal however patient drink alcohol yesterday. Patient's not showing any tremors or anxiety like symptoms on my evaluation. His only complaint is chest discomfort for several days. Patient denies any other complaints no medications taken prior to arrival. Preoperative STENTING at this time. Patient is not showing any symptoms patient is calm cooperative. Patient is not having any sign of alcohol withdrawal at this time. Patient is not having any tremors. Patient is not anxious. EKG showed sinus tachycardia, ventricular to 102 bpm,no ST segment elevation or depression noted. Patient is medically cleared for incarceration. Patient data External records reviewed:: None Clinical information provided by:: patient Social determinants that could affect healthcare access:: none Patient has the following chronic illnesses:: HIV anxiety How is presenting disease/condition affected by chronic disease/condition?: exacerbated by Evaluation data The following diagnostics were reviewed and interpreted by me:: EKG tracing(s) Lab and/or radiology exams considered but not ordered:: None Interpretation Summary: See results MDM Medications / Prescriptions Medications or Prescriptions considered but not ordered:: None Medication administrations:: None Consultations Consultation(s) initiated? (list below): No Diagnosis Medical Clearance Differential Diagnosis: other (Anxiety, chest discomfort, medical clearance) Most likely diagnosis given after review of the tests above:: Medical clearance for incarceration Admission Indicated Admission indicated?: not indicated Admission Request Was there a request for admission?: No Disposition Plan Disposition Plan: Discharge Discharge Attestation Discharge Attestation: Patient condition: Stable Discharge Plan Plan Patient Disposition: HOME (Self Care) Discharge Disposition comment: Stable Prescriptions/Referrals Prescriptions/Med Rec: No Action ibuprofen 800 mg tablet 800 mg PO TID PRN (Reason: pain) Qty: 30 0RF benzonatate 100 mg capsule 100 mg PO TID Qty: 14 0RF hydroxyzine pamoate 50 mg capsule 50 mg PO BID PRN (Reason: anxiety) Qty: 30 0RF emtricitabine-tenofovir (TDF) [Truvada] 200-300 mg tablet 1 tab PO Q24H Qty: 28 0RF Problem List Clinical Impression: Medical clearance for incarceration, History of HIV infection Patient/Caregiver Discharge Instructions Discharge Activity: activity as tolerated Education Materials: Reducing Your Health Risks ... Additional Instructions: Thank you for the opportunity for serving you today. You are stable for discharged back to long term. Print Language: Sami Stand Alone Forms: Jill Award Info., Patient Portal Info Letter ADAM/MADELINE Supervising Physician KIT Supervising Physician: MD Isauro
[2025-05-28] MEDS: ACETAMINOPHEN 500 MG TABLET 1000 MG PO (11:51)
[2025-05-28 11:59] VITALS: BP 149/98; PULSE 101; RESP 19; TEMP 37.3; O2SAT 95
== END 2025-05-28 12:28 | disposition home or self-care (01) ==
LOC: SERX 11:55
PROVIDERS: Emergency Provider Emergency Medicine
DX: Z02.89 Encounter for other administrative examinations (principal); R00.0 Tachycardia, unspecified; Z21 Asymptomatic human immunodeficiency virus [HIV] infection status
CPT/HCPCS: 93005; 99283; A9270